=== PATIENT | male | born 1960 | race Caucasian/White ===

== ENCOUNTER 2017-01-16 17:54 | Emergency (ER) | payer SELFPAY ==
[2017-01-16 17:55] VITALS: BMI 22.8
[2017-01-16 18:19] VITALS: BP 143/81; PULSE 76; RESP 16; TEMP 99.9; O2SAT 100
--- NOTE | 2017-01-16 18:47 | ED PDOC ---
HPI: Head Injury Time Seen by Provider: 01/16/17 18:37 Chief Complaint (Nursing): Abnormal Skin Integrity Past Medical History Vital Signs: Last Vital Signs Temp 99.9 F H 01/16/17 18:17 Pulse 76 01/16/17 18:17 Resp 16 01/16/17 18:17 BP 143/81 01/16/17 18:17 Pulse Ox 100 01/16/17 18:17 - Home Medications Home Medications: Ambulatory Orders Medication Instructions Recorded traMADol [Ultram] 50 mg PO Q6 PRN #12 tab 08/04/15 Naproxen [Naprosyn] 500 mg PO BID PRN #14 tablet 12/07/15 - Allergies Allergies/Adverse Reactions: Allergies Allergy/AdvReac Type Severity Reaction Status Date / Time No Known Allergies Allergy Verified 01/16/17 18:17 - ECG O2 Sat by Pulse Oximetry: 100 Disposition - Clinical Impression Clinical Impression: Scalp laceration, Head injury - Patient ED Disposition Is Patient to be Admitted: No Counseled Patient/Family Regarding: Diagnosis, Need For Followup - Disposition Disposition: Routine/Home Disposition Time: 18:42 Condition: GOOD Additional Instructions: staple removal in 10 days. Instructions: Staple Care (ED) Forms: [employer] ([place]rainian)
== END 2017-01-16 18:59 | disposition home or self-care (01) ==
LOC: H.ER 17:54
DX: S01.01XA Laceration without foreign body of scalp, initial encounter (principal); W22.8XXA Striking against or struck by other objects, initial encounter; Y92.89 Other specified places as the place of occurrence of the external cause

== ENCOUNTER 2017-01-26 08:59 | Emergency (ER) | payer OTHER ==
[2017-01-26 08:59] VITALS: BMI 22.8
[2017-01-26 09:16] VITALS: BP 115/67; PULSE 69; RESP 18; TEMP 98; O2SAT 99
--- NOTE | 2017-01-26 10:42 | ED PDOC ---
HPI: Wound Care - HPI Time Seen by Provider: 01/26/17 09:19 Chief Complaint (Nursing): Suture/Staple Removal Chief Complaint (Provider): Staple removal History Per: Patient Exam Limitations: no limitations Onset/Duration Of Symptoms: Days (x10) Current Symptoms Are (Timing): Still Present Location Of Injury: Posterior: Head Additional Complaint(s): Carlos Denise is a 56 year old male, with no past medical history, who present to the emergency department for staple removal on the skull placed 10 days ago. Patient sustained a laceration at work when he hit his head on the cabin. He denies any discharge, fever or bleeding. He denies any other complaints related to the wound. PMD: None provided. Past Medical History Reviewed: Historical Data, Nursing Documentation, Vital Signs Vital Signs: Last Vital Signs Temp 98 F 01/26/17 09:14 Pulse 69 01/26/17 09:14 Resp 18 01/26/17 09:14 BP 115/67 01/26/17 09:14 Pulse Ox 99 01/26/17 09:14 - Family History Family History: States: Unknown Family Hx - Social History Current smoker - smoking cessation education provided: No Alcohol: None Drugs: Denies - Home Medications Home Medications: Ambulatory Orders Medication Instructions Recorded traMADol [Ultram] 50 mg PO Q6 PRN #12 tab 08/04/15 Naproxen [Naprosyn] 500 mg PO BID PRN #14 tablet 12/07/15 - Allergies Allergies/Adverse Reactions: Allergies Allergy/AdvReac Type Severity Reaction Status Date / Time No Known Allergies Allergy Verified 01/16/17 18:17 Review of Systems ROS Statement: Except As Marked, All Systems Reviewed And Found Negative Constitutional: Negative for: Fever Musculoskeletal: Positive for: Other (staple on skull) Skin: Negative for: Other (no discharge or bleeding from wound.) Physical Exam - Reviewed Nursing Documentation Reviewed: Yes Vital Signs Reviewed: Yes - Physical Exam Appears: Positive for: Well, Non-toxic, No Acute Distress Head Exam: Positive for: ATRAUMATIC (Healing wound on left occipital skull. No swelling, redness, dehiscence or discharge. ), NORMAL INSPECTION, NORMOCEPHALIC Skin: Positive for: Normal Color, Warm, Dry Eye Exam: Positive for: EOMI, Normal appearance, PERRL Neck: Positive for: Normal, Painless ROM, Supple Neurologic/Psych: Positive for: Alert, Oriented - ECG O2 Sat by Pulse Oximetry: 99 (RA) Pulse Ox Interpretation: Normal Medical Decision Making Medical Decision Making: Initial Impression: Suture removal. Wound recheck Initial Plan: -In total 4 arthur were removed. Good closure and hemostasis. The patient tolerated the procedure well and there were no complications. CSM remains intact. Scribe Attestation: Documented by Preet Trujillo, acting as a scribe for Ml Castro MD Provider Scribe Attestation: All medical record entries made by the Scribe were at my direction and personally dictated by me. I have reviewed the chart and agree that the record accurately reflects my personal performance of the history, physical exam, medical decision making, and the department course for this patient. I have also personally directed, reviewed, and agree with the discharge instructions and disposition. Disposition - Clinical Impression Clinical Impression: Encounter for wound re-check, Removal of staple - Disposition Referrals: FAMILY PROVIDER,NO [Primary Care Provider] - Condition: GOOD Additional Instructions: Follow up with your PCP in 1 week. Instructions: Stitches Removal (ED) Forms: [employer] ([place])
== END 2017-01-26 10:18 | disposition home or self-care (01) ==
LOC: SUPCPDRO 08:59 → H.ER 08:59
DX: Z48.02 Encounter for removal of sutures (principal)